=== PATIENT | female | born 1955 | race Caucasian/White ===

== ENCOUNTER → 2016-12-26 | Outpatient (CLI) | payer BC | END | disposition home or self-care (01) | LOC: DXRADRC 12:03 | PROVIDERS: ATTEND Physician Assistant | DX: M25.561 Pain in right knee (principal) | CPT/HCPCS: 73560 ==

== ENCOUNTER → 2017-11-11 | Outpatient (CLI) | payer BC ==
--- NOTE | 2017-11-11 13:22 | RAD ---
Right humerus, 2 views, 11/11/2017: HISTORY: Fall, pain No fracture or bony abnormality is detected. The soft tissues are unremarkable. IMPRESSION: No acute right humeral abnormality is detected. Right wrist, 2 views, 11/11/2017: No fracture or dislocation is identified. The soft tissues are unremarkable. IMPRESSION: No acute right wrist abnormality is detected. Right thumb, 3 views, 11/11/2017: No recent fracture or dislocation is identified. IMPRESSION: No acute bony abnormality is detected. Electronically signed by: Fred Gonsalez MD (11/11/2017 1:18 PM) [facility]
== END | disposition home or self-care (01) ==
LOC: PMG 10:11
PROVIDERS: ATTEND Physician Assistant
DX: M79.601 Pain in right arm (principal); M79.644 Pain in right finger(s); M25.531 Pain in right wrist
CPT/HCPCS: 73060; 73100; 73140

== ENCOUNTER 2018-10-07 14:04 | Emergency (ER) | payer OTHER, BC ==
[~2018-10-07] VITALS: Ht 157.5 cm; Wt 122.9 kg
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
[2018-10-07] MEDS ORDERED: CETI10TA22 PO (14:59)
[2018-10-07] MEDS ORDERED: HYDR25TA PO (14:59)
[2018-10-07] MEDS ORDERED: DIPH25CA58 PO (14:59)
[2018-10-07] MEDS ORDERED: SUMATRIPTAN INJ (14:59)
[2018-10-07] MEDS ORDERED: PYRI50CA PO (14:59)
[2018-10-07] MEDS ORDERED: TRAZ-86 PO (14:59)
[2018-10-07] MEDS ORDERED: CLON1TAB11 PO (14:59)
[2018-10-07] MEDS ORDERED: NAPR-683 PO (14:59)
[2018-10-07] MEDS ORDERED: CYCL-331 PO (14:59)
[2018-10-07] MEDS ORDERED: ESCITALOPRAM OX10 MG PO (14:59)
[2018-10-07] MEDS ORDERED: MEDR2.5T28 PO (14:59)
[2018-10-07] MEDS ORDERED: MONT10TA9 PO (14:59)
[2018-10-07] MEDS ORDERED: AMIT25TA PO (14:59)
[2018-10-07] MEDS ORDERED: LEVO5TAB2 PO (14:59)
[2018-10-07] MEDS ORDERED: BUPR300T4 PO (14:59)
[2018-10-07] MEDS ORDERED: OXYC1TAB15 PO ×2 (14:59→15:45)
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
[2018-10-07] MEDS ORDERED: oxyCODONE/APAP 5/325 1 TAB TABLET PO ONE (16:00)
[2018-10-07 16:08] VITALS: BP 107/65
== END 2018-10-07 16:17 | disposition home or self-care (01) ==
LOC: ER 14:04
DX: S62.511A Displaced fracture of proximal phalanx of right thumb, initial encounter for closed fracture (principal); S52.591A Other fractures of lower end of right radius, initial encounter for closed fracture; V43.63XA Car passenger injured in collision with pick-up truck in traffic accident, initial encounter; Y93.89 Activity, other specified; Y92.488 Other paved roadways as the place of occurrence of the external cause; Y99.8 Other external cause status
CPT/HCPCS: 29125; 73110; 73140; 99284

== ENCOUNTER → 2018-10-09 | Outpatient (CLI) | payer OTHER, BC ==
[2018-10-07 16:08] VITALS: BP 107/65
[~2018-10-09] MED LIST: AMIT25TA PO; BUPR300T4 PO; CETI10TA22 PO; CLON1TAB11 PO; CYCL-331 PO; DIPH25CA58 PO; ESCITALOPRAM OX10 MG PO; HYDR25TA PO; LEVO5TAB2 PO; MEDR2.5T28 PO; MONT10TA9 PO; NAPR-683 PO; OXYC1TAB15 PO; PYRI50CA PO; SUMATRIPTAN INJ; TRAZ-86 PO
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
== END | disposition home or self-care (01) ==
LOC: PMG 11:15
PROVIDERS: ATTEND Registered Nurse
DX: S62.643A Nondisplaced fracture of proximal phalanx of left middle finger, initial encounter for closed fracture (principal); R60.0 Localized edema; X58.XXXA Exposure to other specified factors, initial encounter; Y93.89 Activity, other specified; Y92.89 Other specified places as the place of occurrence of the external cause; Y99.8 Other external cause status
CPT/HCPCS: 73120; 73560

== ENCOUNTER → 2019-01-05 | Outpatient (CLI) | payer OTHER, BC ==
[~2019-01-05] MED LIST changes: +MONT10TA80 PO; -MONT10TA9 PO
--- NOTE | 2019-01-05 14:27 | RAD ---
EXAM: Bilateral lower extremity venous Doppler sonogram. HISTORY: Ecchymosis. Pain. TECHNIQUE: Moise scale and color Doppler sonographic evaluation of the bilateral lower extremity veins with spectral waveform analysis was performed. FINDINGS: The exam is limited due to body habitus. The peroneal veins are not well seen. There is normal color flow, normal compressibility and there are normal spectral waveforms in the common femoral, superficial femoral, popliteal, posterior tibial and greater saphenous veins. IMPRESSION: No Doppler evidence of lower extremity deep venous thrombosis, with limited evaluation of the peroneal veins due to body habitus. Electronically signed by: Evy Chan MD (01/05/2019 2:24 PM) [place] [id number]
== END | disposition home or self-care (01) ==
LOC: US 13:36
PROVIDERS: ATTEND Physician Assistant
DX: S80.11XA Contusion of right lower leg, initial encounter (principal); X58.XXXA Exposure to other specified factors, initial encounter; Y93.89 Activity, other specified; Y92.89 Other specified places as the place of occurrence of the external cause; Y99.8 Other external cause status
CPT/HCPCS: 93970

== ENCOUNTER → 2019-01-28 | Outpatient (CLI) | payer OTHER, BC ==
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
== END | disposition home or self-care (01) ==
LOC: DXRAD 13:52
PROVIDERS: ATTEND Orthopaedic Surgery
DX: M25.562 Pain in left knee (principal)
CPT/HCPCS: 73560; 73565

== ENCOUNTER → 2020-06-26 | Outpatient (CLI) | payer BC ==
[2020-04-28 14:05] VITALS: BP 151/86
[~2020-06-26] MED LIST changes: -BUPR300T4 PO; +BUPR300T92 PO; -CETI10TA22 PO; +CETI10TA74 PO; +TRAZ-125 PO; -TRAZ-86 PO
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
== END ==
LOC: RAD 13:25
PROVIDERS: ATTEND Physician Assistant
DX: M19.011 Primary osteoarthritis, right shoulder (principal); M19.012 Primary osteoarthritis, left shoulder; M25.712 Osteophyte, left shoulder; M25.711 Osteophyte, right shoulder
CPT/HCPCS: 73030

== ENCOUNTER → 2020-09-15 | Outpatient (CLI) | payer BC ==
[~2020-09-15] MED LIST changes: +HEPARIN PF 500 UNIT/5 ML DISP.SYRIN. IVP ONE
[2020-09-15 13:07] VITALS: BP 131/78
== END | disposition home or self-care (01) ==
LOC: OPINF 12:47
PROVIDERS: ATTEND Physician Assistant
DX: Z45.2 Encounter for adjustment and management of vascular access device (principal); Z85.42 Personal history of malignant neoplasm of other parts of uterus
CPT/HCPCS: 96374; 96523

== ENCOUNTER → 2021-04-03 | Outpatient (CLI) | payer BC ==
[~2021-04-03] MED LIST changes: -CYCL-331 PO; +CYCL10TA19 PO; -HEPARIN PF 500 UNIT/5 ML DISP.SYRIN. IVP ONE
[2021-04-03 13:15] VITALS: BP 149/77
--- NOTE | 2021-04-03 13:28 | NUR ---
Pt arrived @ 1310. Port accessed, flushed, and discontinued. Tolerated well. VSS. Explained to pt that new orders would be needed for next port flush in 3 months. Pt discharged @ 1324.
== END | disposition home or self-care (01) ==
LOC: OPINF 13:03
PROVIDERS: ATTEND Physician Assistant
DX: Z45.2 Encounter for adjustment and management of vascular access device (principal); M19.90 Unspecified osteoarthritis, unspecified site; Z85.42 Personal history of malignant neoplasm of other parts of uterus
CPT/HCPCS: 96523